=== PATIENT | male | born 1980 | race Caucasian/White ===

== ENCOUNTER 2017-04-15 17:34 | Emergency (ER) | payer OTHER ==
[~2017-04-15] VITALS: Ht 182.9 cm; Wt 95.5 kg
[~2017-04-15 17:34] MED LIST: HYDR-3240 PO; NAPR220C2 PO; PROM25SU35 PR
[2017-04-15] MEDS ORDERED: DIAZEPAM 5 MG TABLET ONE (18:47)
[2017-04-15] MEDS ORDERED: HYDROmorphone 1 MG/ML, 1ML ONE (18:47)
[2017-04-15] MEDS ORDERED: KETOROLAC 30 MG/1 ML ONE (18:48)
[2017-04-15] MEDS ORDERED: HYDROmorphone 1 MG/ML, 1ML IM ONE (19:00)
[2017-04-15] MEDS ORDERED: KETOROLAC 30 MG/1 ML IM ONE (19:00)
[2017-04-15] MEDS ORDERED: DIAZEPAM 5 MG TABLET PO ONE (19:00)
[2017-04-15 19:47] VITALS: BP 127/78
== END 2017-04-15 19:51 | disposition home or self-care (01) ==
LOC: ED 18:28
DX: M47.816 Spondylosis without myelopathy or radiculopathy, lumbar region (principal); S39.012A Strain of muscle, fascia and tendon of lower back, initial encounter; X58.XXXA Exposure to other specified factors, initial encounter; Y93.89 Activity, other specified; Y92.89 Other specified places as the place of occurrence of the external cause; Y99.8 Other external cause status
CPT/HCPCS: 72110; 96372; 99284; J1170; J1885; J7512

== ENCOUNTER → 2017-07-21 | Outpatient (CLI) | payer OTHER ==
[2017-07-21 08:39] LABS: BASOPHILS % (AUTO) 2 % (0-1); EOSINOPHILS # (AUTO) 0.25 x10^3/uL (0-0.4); EOSINOPHILS % (AUTO) 4 % (1-7); LYMPHOCYTES # (AUTO) 1.68 x10^3/uL (1-3.4); LYMPHOCYTES % (AUTO) 27 % (22-44); MD NO; MEAN CORPUSCULAR HEMOGLOBIN 32.7 pg (27.5-34.5); MEAN CORPUSCULAR HGB CONC 34.8 g/dL (33.2-36.2); MEAN CORPUSCULAR VOLUME 94.1 fL (81-97); MEAN PLATELET VOLUME 9.3 fL (7.4-10.4); MONOCYTES # (AUTO) 0.46 x10^3/uL (0.2-0.8); MONOCYTES % (AUTO) 7 % (2-9); NEUTROPHILS # (AUTO) 3.79 x10^3/uL (1.8-6.8); NEUTROPHILS % (AUTO) 60 % (42-75); PLATELET COUNT 216 x10^3/uL (130-400); RED BLOOD COUNT 4.84 x10^6/uL (4.38-5.82); RED CELL DISTRIBUTION WIDTH 13.3 % (9.4-14.8)
[2017-07-21 08:47] LABS: INTERNATIONAL NORMALIZED RATIO 0.94 (0.93-1.1); PROTHROMBIN TIME 9.7 Seconds (9.6-11.5)
[2017-07-21 08:48] LABS: MICROSCOPIC NOT IND
[2017-07-21 08:50] LABS: ANION GAP 7 mmol/L (5-15); CALCIUM 8.8 mg/dL (8.5-10.1); CHLORIDE 107 mmol/L (98-107); CREATININE 0.85 mg/dL (0.7-1.3)
[2017-07-21 08:54] LABS: CULTURE INDICATED? NO
== END | disposition home or self-care (01) ==
LOC: STAR 07:50
PROVIDERS: ATTEND Neurological Surgery
DX: Z01.818 Encounter for other preprocedural examination (principal); R00.1 Bradycardia, unspecified; M51.36 Other intervertebral disc degeneration, lumbar region; M51.26 Other intervertebral disc displacement, lumbar region
CPT/HCPCS: 36415; 71046; 72110; 80048; 81003; 85025; 85610; 85730; 93005

== ENCOUNTER 2017-08-05 12:53 | Day surgery (SDC) | payer OTHER ==
[~2017-08-05] VITALS: Ht 182.9 cm; Wt 97.7 kg
[~2017-08-05 12:53] MED LIST changes: +BACITRACIN 50,000 UNIT ONE; +BUPIVACAINE/PF 0.5% ONE; +EPINEPHRINE 1 MG/ML, 1ML ONE; +THROMBIN 5,000 UNIT VIAL TP ONE
[2017-08-05 13:20] VITALS: BP 144/87
[2017-08-05] MEDS ORDERED: MIDAZOLAM 1 MG/ML, 2ML ONE (14:51)
[2017-08-05] MEDS ORDERED: FENTANYL PF 250 MCG/5ML ONE (14:52)
[2017-08-05] MEDS ORDERED: SCOPOLAMINE 1MG PATCH TD ONE (15:10)
[2017-08-05] MEDS ORDERED: ROCURONIUM 10 MG/ML,10ML ONE (15:25)
[2017-08-05] MEDS ORDERED: GLYCOPYRROLATE 0.2MG/1ML, 5ML ONE (15:25)
[2017-08-05] MEDS ORDERED: PROPOFOL 10 MG/ML, 20ML ONE (15:25)
[2017-08-05] MEDS ORDERED: CEFAZOLIN 1,000 MG ONE (15:25)
[2017-08-05] MEDS ORDERED: ONDANSETRON 2MG/ML, 2ML ONE (15:25)
[2017-08-05] MEDS ORDERED: NEOSTIGMINE 1 MG/ML, 10ML ONE (15:25)
[2017-08-05] MEDS ORDERED: SUCCINYLCHOLINE 20 MG/ML, 10ML ONE (15:25)
[2017-08-05] MEDS ORDERED: DEXAMETHASONE 4 MG/ML, 1ML ONE (15:25)
[2017-08-05] MEDS ORDERED: BUPIVACAINE/PF 0.5% ONE (15:50)
[2017-08-05] MEDS ORDERED: EPINEPHRINE 1 MG/ML, 1ML ONE (15:50)
[2017-08-05] MEDS ORDERED: BUPIVACAINE/PF-EPI 0.5% 1:200K INFIL ONE (15:58)
[2017-08-05] MEDS ORDERED: BACITRACIN 50,000 UNIT IM ONE (15:59)
[2017-08-05] MEDS ORDERED: THROMBIN 5,000 UNIT VIAL TP ONE (16:00)
[2017-08-05] MEDS ORDERED: OXYC1TAB9 PO (16:54)
[2017-08-05] MEDS ORDERED: CYCL-259 PO (16:54)
[2017-08-05] MEDS ORDERED: MEPERIDINE/PF 50 MG/ML ONE (17:01)
[2017-08-05] MEDS ORDERED: OXYcodone 5 MG/5 ML ORAL.SOL UDC ONE (17:02)
[2017-08-05] MEDS ORDERED: DIAZEPAM 5 MG/ML, 2ML IVPush PRN (17:30)
[2017-08-05] MEDS ORDERED: MEPERIDINE/PF 25MG/0.5ML IVPush PRN (17:30)
[2017-08-05] MEDS ORDERED: OXYcodone 5 MG/5 ML ORAL.SOL UDC PO PRN (17:30)
[2017-08-05] MEDS ORDERED: FENTANYL PF 100 MCG/2ML IV PRN (17:30)
== END 2017-08-05 18:30 | disposition home or self-care (01) ==
LOC: OR 12:53 → 4NOR 13:03 → OR 18:30
PROVIDERS: ATTEND Neurological Surgery
DX: M51.16 Intervertebral disc disorders with radiculopathy, lumbar region (principal); Z98.890 Other specified postprocedural states; Z72.89 Other problems related to lifestyle
CPT/HCPCS: 63030; 72100; J0171; J0330; J0690; J1100; J2175; J2250; J2405; J2704; J2710; J3010; J3490